=== PATIENT | male | born 1945 | race Caucasian/White ===

== ENCOUNTER 2017-01-27 07:14 | Day surgery (SDC) | payer MEDICARE ==
[~2017-01-27] VITALS: Ht 167.6 cm; Wt 79.4 kg
[~2017-01-27 07:14] MED LIST: ANTIVERT12.5 MG PO; ASPIRIN81 MG PO; ATORVASTATIN CA20 MG PO; GABAPENTIN300 MG PO; LISINOPRIL10 MG PO; PHENERGAN25 MG/ML IM; VITAMIN B-122500 MCG SL; ZOFRAN ODT4 MG PO
[2017-01-27 11:52] VITALS: BP 122/72
== END 2017-01-27 13:00 | disposition home or self-care (01) ==
LOC: ENDO 07:14 → ORM 09:00 → ENDO 09:00 → ORM 10:00 → ENDO 10:00
PROVIDERS: ATTEND Surgery
PROC: 0DJD8ZZ Inspection of Lower Intestinal Tract, Via Natural or Artificial Opening Endoscopic (ICD-10-PCS; principal; 2017-01-27)
DX: R19.5 Other fecal abnormalities (principal); K57.30 Diverticulosis of large intestine without perforation or abscess without bleeding; I10 Essential (primary) hypertension; E78.5 Hyperlipidemia, unspecified